=== PATIENT | male | born 1945 | race Caucasian/White ===

== ENCOUNTER 2018-03-19 14:23 | Emergency (ER) | payer BC ==
--- NOTE | 2018-03-19 14:33 | ER Report ---
History and Physical Time Seen By MD: 14:33 Hx. of Stated Complaint: patient can't get a stream of urine going, has not pee'd since yesterday morning, patient having lower abdominal ain for having not been able to pee. HPI/ROS CHIEF COMPLAINT: Urinary retention HISTORY OF PRESENT ILLNESS: This is a 72-year-old male presents to the emergency department for urinary retention. Patient states that he last urinated yesterday, tried to throughout the night however unsuccessful. Patient states that he is beginning to have quite a bit of discomfort in his bladder. He has had some constipation he recently as well as diarrhea however his bowel movement was normal today. No nausea or vomiting. No chest pain or shortness breath. No fevers or chills. No history of urinary retention. Or enlarged prostate. REVIEW OF SYSTEMS: Constitutional: No fever, no chills. Eyes: No discharge. ENT: No sore throat. Cardiovascular: No chest pain, no palpitations. Respiratory: No cough, no shortness of breath. Gastrointestinal: No abdominal pain, no vomiting. Genitourinary: As above. Musculoskeletal: No back pain. Skin: No rashes. Neurological: No headache. 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 Tonsillectomy. Reviewed Nurses Notes: Yes Constitutional Vital Sign - Last 24 Hours 03/19/18 03/19/18 03/19/18 03/19/18 14:27 14:38 14:45 14:53 Temp 98.3 Pulse 55 55 58 Resp 24 B/P (MAP) 148/79 161/91 (114) Pulse Ox 93 94 95 O2 Delivery Room Air 03/19/18 03/19/18 03/19/18 03/19/18 15:00 15:08 15:23 15:30 Pulse 55 52 B/P (MAP) 134/81 (98) 105/76 (86) Pulse Ox 97 95 03/19/18 03/19/18 03/19/18 03/19/18 15:38 15:53 16:00 16:08 Pulse 54 52 53 B/P (MAP) 119/70 (86) Pulse Ox 94 94 95 03/19/18 03/19/18 03/19/18 16:13 16:28 16:30 Pulse 60 43 B/P (MAP) 122/111 (115) Pulse Ox 96 94 Physical Exam General Appearance: The patient is alert, has no immediate need for airway protection and no signs of toxicity. Eyes: Pupils equal and round no pallor or injection. ENT, Mouth: Mucous membranes are moist. Respiratory: There are no retractions, lungs are clear to auscultation. Cardiovascular: Regular rate and rhythm. Gastrointestinal: Abdomen is soft, tenderness to the lower midabdomen around the bladder, no masses, bowel sounds normal. Neurological: Alert and oriented 4. Moving all extremities. Following all commands. No focal neuro. Skin: Warm and dry, no rashes. Musculoskeletal: Neck is supple non tender. Extremities are nontender, nonswollen and have full range of motion. DIFFERENTIAL DIAGNOSIS: After history and physical exam differential diagnosis was considered for urinary retention, prostatitis and urinary tract infection. Medical Decision Making Data Points Laboratory Hematology Test 03/19/18 15:14 Urine Color Yellow Urine Clarity Clear Urine pH 6.0 pH (4.8-9.5) Urine Specific [place] 1.017 Urine Protein Negative mg/dL (NEGATIVE) Urine Glucose (UA) Negative mg/dL (NEGATIVE) Urine Ketones Trace mg/dL (NEGATIVE) Urine Blood Negative (NEGATIVE) Urine Nitrite Negative (NEGATIVE) Urine Bilirubin Negative (NEGATIVE) Urine Urobilinogen Negative mg/dL (0.2-1.9) Urine Leukocyte Esterase Negative (NEGATIVE) Urine RBC 14 /HPF (0-2/HPF) Urine WBC 1 /HPF (0-5/HPF) Urine Squamous Epithelial Cells None /LPF (NONE-FEW) Urine Bacteria Negative /HPF (NONE-FEW) Urine Mucus Few /HPF (NONE-FEW) Chemistry Test 03/19/18 15:14 Urine Color Yellow Urine Clarity Clear Urine pH 6.0 pH (4.8-9.5) Urine Specific [place] 1.017 Urine Protein Negative mg/dL (NEGATIVE) Urine Glucose (UA) Negative mg/dL (NEGATIVE) Urine Ketones Trace mg/dL (NEGATIVE) Urine Blood Negative (NEGATIVE) Urine Nitrite Negative (NEGATIVE) Urine Bilirubin Negative (NEGATIVE) Urine Urobilinogen Negative mg/dL (0.2-1.9) Urine Leukocyte Esterase Negative (NEGATIVE) Urine RBC 14 /HPF (0-2/HPF) Urine WBC 1 /HPF (0-5/HPF) Urine Squamous Epithelial Cells None /LPF (NONE-FEW) Urine Bacteria Negative /HPF (NONE-FEW) Urine Mucus Few /HPF (NONE-FEW) Urinalysis Test 03/19/18 15:14 Urine Color Yellow Urine Clarity Clear Urine pH 6.0 pH (4.8-9.5) Urine Specific [place] 1.017 Urine Protein Negative mg/dL (NEGATIVE) Urine Glucose (UA) Negative mg/dL (NEGATIVE) Urine Ketones Trace mg/dL (NEGATIVE) Urine Blood Negative (NEGATIVE) Urine Nitrite Negative (NEGATIVE) Urine Bilirubin Negative (NEGATIVE) Urine Urobilinogen Negative mg/dL (0.2-1.9) Urine Leukocyte Esterase Negative (NEGATIVE) Urine RBC 14 /HPF (0-2/HPF) Urine WBC 1 /HPF (0-5/HPF) Urine Squamous Epithelial Cells None /LPF (NONE-FEW) Urine Bacteria Negative /HPF (NONE-FEW) Urine Mucus Few /HPF (NONE-FEW) ED Course/Re-evaluation ED Course The patient was admitted to room. A history and physical were obtained. Differential diagnoses were considered. The patient did try to urinate again on his own however he was unsuccessful. A Mclean catheter was placed, did drain about 1200 mL of urine, dark initially but did clear up. A UA was sent, negative. The patient I had a lengthy discussion about urinary retention, we've elected to remove the Mclean catheter, if unable to urinate in the next 8-10 hours he'll return for bladder scan and possibly insertion of an another Mclean catheter at which time we would leave it in place and have him follow-up when he returns home. I did talk to the patient about starting Flomax, he did not want to start at this time. The patient had significant relief, felt much better at the time of discharge. I did tell the patient that this could be secondary to an enlarged prostate, I did recommend following up with his primary care provider or urology even if he does not need a another Mclean catheter placed. Patient expressed understanding and was discharged home. 03/19/2018 2:43:28 pm bladder scanner showing greater than 1000 mL of urine in the bladder. Decision to Disposition Date: Mar 19, 2018 Decision to Disposition Time: 16:27 Depart Departure Latest Vital Signs Vital Signs Date Time Temp Pulse Resp B/P (MAP) Pulse Ox O2 Delivery O2 Flow Rate FiO2 03/19/18 16:30 122/111 (115) 03/19/18 16:28 43 94 03/19/18 14:27 98.3 24 Room Air Impression: Primary Impression: Urinary retention Condition: Improved Disposition: HOME OR SELF-CARE Patient Instructions: Urinary Retention in Men (ED) Additional Instructions: You did have a large amount of urine retained in your bladder, we were able to place a catheter and removed over 1000 mL of urine. There is no sign of urinary infection. I would recommend returning to the emergency department if no urine production and 8-10 hours. Continue drinking fluids. Get plenty of rest. Return to the emergency department for any concerns or worsening symptoms. JALEN HENRIQUEZ [employer] Mar 19, 2018 14:33
[2018-03-19] MEDS ORDERED: LIDOCAINE 2% 200MG/10ML UROJET TP ONE (14:50)
[2018-03-19 16:30] VITALS: BP 122/111
[2018-03-20] MEDS ORDERED: TAMS0.4C25 PO (06:09)
== END 2018-03-19 16:45 | disposition home or self-care (01) ==
LOC: ER 15:02
DX: R33.9 Retention of urine, unspecified (principal)
CPT/HCPCS: 81001; 99282

== ENCOUNTER 2018-03-20 05:48 | Emergency (ER) | payer BC ==
[2018-03-20 05:52] VITALS: BP 159/75
--- NOTE | 2018-03-20 06:03 | ER Report ---
History and Physical Time Seen By MD: 06:03 Hx. of Stated Complaint: PT RETURN VISIT FROM YESTERDAY. PT UNABLE TO URINATE. HPI/ROS CHIEF COMPLAINT: Urinary retention HISTORY OF PRESENT ILLNESS: 72-year-old male seen several hours ago here in the emergency department had a bladder scan which showed 1000 mL. A Mclean catheter was inserted. He got good relief. Patient requested that the Mclean catheter be removed. He returns now unable to pass urine for the last 8-12 hours. He is able to void a few drops of urine every time he goes. He notes no hematuria or fever. He would like to try Flomax to see if it'll relieve his BPH. Patient notes lower abdominal pressure and distention. REVIEW OF SYSTEMS: Respiratory: No cough, no dyspnea. Cardiovascular: No chest pain, no palpitations. Gastrointestinal: As above Musculoskeletal: No back pain. Allergies: Coded Allergies: No Known Drug Allergies (Unverified , 03/20/18) Home Meds Active Scripts Tamsulosin Hcl (FLOMAX) 0.4 Mg Cap.er.24h, 0.4 MG PO DAILY for urinary retention, #20 CAP Prov:SUYAPACRISTOBAL M DO 03/20/18 Reviewed Nurses Notes: Yes Old Medical Records Reviewed: Yes Constitutional Vital Sign - Last 24 Hours 03/20/18 05:52 Temp 97.7 Pulse 54 Resp 16 B/P (MAP) 159/75 Pulse Ox 92 O2 Delivery Room Air Physical Exam General Appearance: The patient is alert, has no immediate need for airway protection and no current signs of toxicity., Vital signs stable, afebrile, pulse ox normal Eyes: Pupils equal and round no injection. Respiratory: Chest is non tender, lungs are clear to auscultation. Cardiac: regular rate and rhythm Gastrointestinal: Abdomen is soft . Suprapubic fullness and non tender, no masses, bowel sounds normal. Musculoskeletal: Neck: Neck is supple and non tender. Extremities have full range of motion and are non tender. Skin: No rashes or lesions. DIFFERENTIAL DIAGNOSIS: After history and physical exam differential diagnosis was considered for urinary retention including but not limited to medication side effect, neurologic causes, outflow obstruction including prostatic hypertrophy, and blood. Medical Decision Making ED Course/Re-evaluation ED Course Patient was admitted to an examination room. H&P was done. The differential diagnoses was considered. On clinical examination. Patient has obvious signs of urinary retention. Patient was offered Mclean catheterization and a leg bag. He was seen earlier and had Mclean catheter inserted, but he elected to have it removed. I suggested a Mclean catheter be inserted and he be equipped with a leg bag, once again He would like to try Flomax before he catheter is placed at this time. Patient was cautioned about orthostatic hypotension. Decision to Disposition Date: Mar 20, 2018 Decision to Disposition Time: 06:07 Depart Departure Latest Vital Signs Vital Signs Date Time Temp Pulse Resp B/P (MAP) Pulse Ox O2 Delivery O2 Flow Rate FiO2 03/20/18 05:52 97.7 54 16 159/75 92 Room Air Impression: Primary Impression: Urinary retention Condition: Improved Disposition: HOME OR SELF-CARE Referrals: UMBERTO QUARLES MD New Scripts Tamsulosin Hcl (FLOMAX) 0.4 Mg Cap.er.24h 0.4 MG PO DAILY for urinary retention, #20 CAP Prov: CRISTOBAL DALE DO 03/20/18 Patient Instructions: Urinary Retention in Men (ED) CRISTOBAL DALE DO Mar 20, 2018 06:03
[2018-03-20] MEDS ORDERED: TAMS0.4C25 PO (06:09)
[2018-03-20] MEDS ORDERED: TAMSULOSIN HCL 0.4 MG CAP PO ONE (06:10)
== END 2018-03-20 06:34 | disposition home or self-care (01) ==
LOC: ER 06:18
DX: R33.9 Retention of urine, unspecified (principal)
CPT/HCPCS: 99283